=== PATIENT | male | born 1990 | race Caucasian/White ===

== ENCOUNTER 2018-03-27 19:16 | Inpatient (IN) | payer OTHER ==
[2018-03-27 20:01] LABS: ADD MAN DIFF? NO
[2018-03-27] MEDS: LORAZEPAM 2 MG INJ IV (20:07)
[2018-03-27] MEDS: ONDANSETRON 4 MG INJ IV (20:07)
[2018-03-27] MEDS: morphine 4 MG/ML VIAL IV (20:07)
[2018-03-27 20:12] LABS: BASOPHIL # 0.1 10^3/ul (0.0-0.1); BASOPHILS % 0.4 % (0.0-2.0); EOSINOPHILS # 0.2 10^3/ul (0.0-0.5); EOSINOPHILS % 1.3 % (0.0-7.0); HEMATOCRIT 43.9 % (42.0-52.0); HEMOGLOBIN 15.5 g/dl (14.0-18.0); LYMPHOCYTES # 2.3 10^3/ul (0.8-2.9); LYMPHOCYTES % 20.2 % (15.0-51.0); MEAN CORPUSCULAR HEMOGLOBIN 32.4 pg (29.0-33.0); MEAN CORPUSCULAR HGB CONC 35.3 g/dl (32.0-37.0); MEAN CORPUSCULAR VOLUME 91.6 fl (82.0-101.0); MEAN PLATELET VOLUME 10.9 fl (7.4-10.4); MONOCYTE # 0.7 10^3/ul (0.3-0.9); MONOCYTES % 6.5 % (0.0-11.0); NEUTROPHILS % 71.1 % (39.0-77.0); PLATELET COUNT 251 10^3/UL (140-415); RED BLOOD COUNT 4.79 10^6/ul (4.70-6.10); RED CELL DISTRIBUTION WIDTH 12.4 % (11.5-14.5)
[2018-03-27 20:12] LABS: WHITE BLOOD COUNT 11.2 10^3/ul (4.8-10.8)
[2018-03-27] MEDS: SOD CHLORIDE 0.9% 1,000 ML IV (20:14)
[2018-03-27 20:28] LABS: ALANINE AMINOTRANSFERASE 176 IU/L (13-69); ALBUMIN 4.6 g/dl (3.3-4.9); ALBUMIN/GLOBULIN RATIO 1.31; ALKALINE PHOSPHATASE 172 IU/L (42-121); ANION GAP 20 (8-16); ASPARTATE AMINO TRANSFERASE 100 IU/L (15-46); BILIRUBIN,INDIRECT 1.3 mg/dl (0-1.1); BILIRUBIN,TOTAL 3.9 mg/dl (0.2-1.3); BLOOD UREA NITROGEN 11 mg/dl (7-20); CALCIUM 9.8 mg/dl (8.4-10.2); CARBON DIOXIDE 26 mmol/L (21-31); CHLORIDE 104 mmol/L (97-110); CREATININE 0.91 mg/dl (0.61-1.24); GLUCOSE 135 mg/dl (70-220); POTASSIUM 4.1 mmol/L (3.5-5.1); SODIUM 146 mmol/L (135-144); TOTAL PROTEIN 8.1 g/dl (6.1-8.1)
[2018-03-27 20:31] LABS: ACETAMINOPHEN < 10.0 ug/ml (10.0-30.0); ETHANOL < 10.0 mg/dl; SALICYLATE < 1.0 mg/dl (5.0-30.0)
[2018-03-27 20:32] LABS: PARTIAL THROMBOPLASTIN TIME 26.4 Sec (25.0-35.0); PROTIME 12.2 Sec (11.9-14.9)
[2018-03-27] MEDS: SOD CHLORIDE 0.9% 100 ML (20:44)
[2018-03-27] MEDS: IOHEXOL 100 ML (20:44)
[2018-03-27 21:18] LABS: LIPASE 36746 U/L (23-300)
[2018-03-27 22:30] LABS: ADD UMIC NO; UR ASCORBIC ACID NEGATIVE (NEGATIVE); UR BILIRUBIN (Dip) NEGATIVE (NEGATIVE); UR BLOOD (Dip) NEGATIVE (NEGATIVE); UR CLARITY CLEAR (CLEAR); UR COLOR YELLOW (YELLOW); UR GLUCOSE (Dip) NEGATIVE (NEGATIVE); UR KETONES (Dip) TRACE mg/dL (NEGATIVE); UR LEUKOCYTE ESTERASE (Dip) NEGATIVE Leu/ul (NEGATIVE); UR NITRITE (Dip) NEGATIVE (NEGATIVE); UR SPECIFIC GRAVITY (Dip) 1.019 (1.003-1.030); UR TOTAL PROTEIN (Dip) NEGATIVE (NEGATIVE); UR UROBILINOGEN (Dip) 1+ mg/dL (NEGATIVE)
[2018-03-27] MEDS ORDERED: ACETAMINOPHEN 325 MG TAB PO (23:00)
[2018-03-27] MEDS ORDERED: ONDANSETRON 4 MG INJ IV (23:00)
[2018-03-27 23:10] LABS: AMPHETAMINE/METHAMPHETAMINE Negative (NEGATIVE); BENZODIAZEPINES Negative (NEGATIVE); CANNABINOIDS Positive (NEGATIVE); COCAINE Negative (NEGATIVE); OPIATES Positive (NEGATIVE)
[2018-03-27] MEDS: AMPICILLIN/SULB 3 GM/NS (PMX) 100 ML IVPB (23:12)
[2018-03-27 23:16] LABS: BARBITURATES Negative (NEGATIVE)
[2018-03-27] MEDS: HYDROmorphONE 0.5 MG/0.5 ML SYG IV (23:21)
[2018-03-28] MEDS ORDERED: ALBUTEROL/IPRATROPIUM (NEB) 3 ML AMP HHN
[2018-03-28] MEDS ORDERED: NACL 0.9% 3 ML SYG IV
[2018-03-28] MEDS: DEXTROSE 5%-0.45% NACL 1,000 ML IV ×3 (01:00→19:59)
[2018-03-28] MEDS: morphine 2 MG INJ IV (03:08)
[2018-03-28] MEDS: ONDANSETRON 4 MG INJ IV ×2 (04:04→13:08)
[2018-03-28] MEDS: KETOROLAC 30 MG INJ IV (04:16)
[2018-03-28] MEDS: HYDROmorphONE 1 MG/ML SYG IV ×6 (04:17→23:08)
[2018-03-28 06:14] LABS: ADD MAN DIFF? NO
[2018-03-28 06:20] LABS: ABNORMAL IP MESSAGE 1; BASOPHILS % 0.1 % (0.0-2.0); HEMATOCRIT 45.2 % (42.0-52.0); HEMOGLOBIN 16.1 g/dl (14.0-18.0); LYMPHOCYTES # 0.3 10^3/ul (0.8-2.9); LYMPHOCYTES % 1.9 % (15.0-51.0); MEAN CORPUSCULAR HEMOGLOBIN 32.7 pg (29.0-33.0); MEAN CORPUSCULAR HGB CONC 35.6 g/dl (32.0-37.0); MEAN CORPUSCULAR VOLUME 91.7 fl (82.0-101.0); MEAN PLATELET VOLUME 11.4 fl (7.4-10.4); MONOCYTE # 0.7 10^3/ul (0.3-0.9); MONOCYTES % 4.3 % (0.0-11.0); NEUTROPHIL # 14.4 10^3/ul (1.6-7.5); NEUTROPHILS % 93.1 % (39.0-77.0); PLATELET COUNT 256 10^3/UL (140-415); POSITIVE DIFF @See below; RED BLOOD COUNT 4.93 10^6/ul (4.70-6.10); RED CELL DISTRIBUTION WIDTH 12.4 % (11.5-14.5)
[2018-03-28 06:20] LABS: WHITE BLOOD COUNT 15.4 10^3/ul (4.8-10.8)
[2018-03-28 06:58] LABS: ALANINE AMINOTRANSFERASE 178 IU/L (13-69); ALBUMIN 4.1 g/dl (3.3-4.9); ALBUMIN/GLOBULIN RATIO 1.41; ALKALINE PHOSPHATASE 159 IU/L (42-121); ANION GAP 11 (8-16); ASPARTATE AMINO TRANSFERASE 106 IU/L (15-46); BILIRUBIN,INDIRECT 1.5 mg/dl (0-1.1); BILIRUBIN,TOTAL 4.6 mg/dl (0.2-1.3); BLOOD UREA NITROGEN 10 mg/dl (7-20); CALCIUM 9.1 mg/dl (8.4-10.2); CARBON DIOXIDE 27 mmol/L (21-31); CHLORIDE 105 mmol/L (97-110); GLUCOSE 174 mg/dl (70-220); PHOSPHORUS 4.7 mg/dl (2.5-4.9); POTASSIUM 3.8 mmol/L (3.5-5.1); SODIUM 139 mmol/L (135-144)
[2018-03-28 08:05] LABS: MAGNESIUM 1.7 mg/dl (1.7-2.5)
[2018-03-28] MEDS: FAMOTIDINE 20 MG INJ IV (08:27)
[2018-03-28] MEDS: MEROPENEM 1 GM/50ML(PMX) 50 ML IVPB ×3 (10:03→22:29)
[2018-03-28] MEDS ORDERED: morphine LIQ (10 MG/5 ML) CUP PO (15:00)
[2018-03-29] MEDS ORDERED: SENNA TAB PO
[2018-03-29] MEDS: SENNA TAB PO ×3 (01:58→20:07)
[2018-03-29] MEDS: MAGNESIUM HYDROXIDE 30ML CUP PO (02:01)
[2018-03-29] MEDS: HYDROmorphONE 1 MG/ML SYG IV ×8 (02:03→23:05)
[2018-03-29] MEDS: DEXTROSE 5%-0.45% NACL 1,000 ML IV ×3 (04:05→22:01)
[2018-03-29] MEDS: MEROPENEM 1 GM/50ML(PMX) 50 ML IVPB ×3 (05:22→22:01)
[2018-03-29 06:13] LABS: ADD MAN DIFF? NO
[2018-03-29 06:17] LABS: ABNORMAL IP MESSAGE 1; BASOPHILS % 0.1 % (0.0-2.0); HEMATOCRIT 45.3 % (42.0-52.0); LYMPHOCYTES # 0.7 10^3/ul (0.8-2.9); MEAN CORPUSCULAR HEMOGLOBIN 32.3 pg (29.0-33.0); MEAN CORPUSCULAR HGB CONC 35.3 g/dl (32.0-37.0); MEAN CORPUSCULAR VOLUME 91.5 fl (82.0-101.0); MEAN PLATELET VOLUME 11.3 fl (7.4-10.4); MONOCYTE # 1.2 10^3/ul (0.3-0.9); MONOCYTES % 5.1 % (0.0-11.0); NEUTROPHIL # 22.1 10^3/ul (1.6-7.5); PLATELET COUNT 234 10^3/UL (140-415); POSITIVE DIFF @See below; RED BLOOD COUNT 4.95 10^6/ul (4.70-6.10); RED CELL DISTRIBUTION WIDTH 12.8 % (11.5-14.5)
[2018-03-29 06:17] LABS: WHITE BLOOD COUNT 24.3 10^3/ul (4.8-10.8)
[2018-03-29 07:04] LABS: ALANINE AMINOTRANSFERASE 139 IU/L (13-69); ALBUMIN 3.8 g/dl (3.3-4.9); ALBUMIN/GLOBULIN RATIO 1.26; ALKALINE PHOSPHATASE 161 IU/L (42-121); ANION GAP 10 (8-16); ASPARTATE AMINO TRANSFERASE 48 IU/L (15-46); BILIRUBIN,INDIRECT 1.7 mg/dl (0-1.1); BILIRUBIN,TOTAL 1.7 mg/dl (0.2-1.3); BLOOD UREA NITROGEN 14 mg/dl (7-20); CALCIUM 9.2 mg/dl (8.4-10.2); CARBON DIOXIDE 29 mmol/L (21-31); CHLORIDE 103 mmol/L (97-110); CREATININE 0.59 mg/dl (0.61-1.24); GLUCOSE 120 mg/dl (70-220); POTASSIUM 3.4 mmol/L (3.5-5.1); SODIUM 139 mmol/L (135-144); TOTAL PROTEIN 6.8 g/dl (6.1-8.1)
[2018-03-29 07:08] LABS: HEPATITIS B SURFACE ANTIGEN NEGATIVE (NEGATIVE)
[2018-03-29 07:25] LABS: LIPASE 2607 U/L (23-300)
[2018-03-29 07:25] LABS: HEPATITIS B SURFACE ANTIBODY NEGATIVE (NEGATIVE)
[2018-03-29 07:26] LABS: HEPATITIS B CORE ANTIBODY NEGATIVE (NEGATIVE); HEPATITIS C VIRAL ANTIBODY NEGATIVE (NEGATIVE)
[2018-03-29] MEDS: FAMOTIDINE 20 MG INJ IV (08:34)
[2018-03-29] MEDS ORDERED: POTASSIUM CHLORIDE 50 ML IVPB (09:00)
[2018-03-29] MEDS: POTASSIUM CHLORIDE 100 ML IVPB (10:35)
[2018-03-29] MEDS: BISACODYL 10 MG SUPP PR (14:32)
[2018-03-29] MEDS ORDERED: VITAMIN A & D 5 GM OINT PACKET TOP (14:37)
[2018-03-29] MEDS: KETOROLAC 30 MG INJ IV (21:59)
[2018-03-30] MEDS: ACETAMINOPHEN 1000MG/100ML IV 100 ML IVPB (01:18)
[2018-03-30] MEDS: HYDROmorphONE 1 MG/ML SYG IV ×10 (02:10→23:26)
[2018-03-30] MEDS: KETOROLAC 30 MG INJ IV (04:19)
[2018-03-30 05:35] LABS: ADD MAN DIFF? NO
[2018-03-30] MEDS: MEROPENEM 1 GM/50ML(PMX) 50 ML IVPB ×3 (05:40→21:26)
[2018-03-30 05:46] LABS: WHITE BLOOD COUNT 21.4 10^3/ul (4.8-10.8)
[2018-03-30 05:46] LABS: BASOPHILS % 0.1 % (0.0-2.0); HEMATOCRIT 40.9 % (42.0-52.0); HEMOGLOBIN 14.5 g/dl (14.0-18.0); LYMPHOCYTES % 4.7 % (15.0-51.0); MEAN CORPUSCULAR HEMOGLOBIN 32.3 pg (29.0-33.0); MEAN CORPUSCULAR HGB CONC 35.5 g/dl (32.0-37.0); MEAN CORPUSCULAR VOLUME 91.1 fl (82.0-101.0); MEAN PLATELET VOLUME 11.1 fl (7.4-10.4); MONOCYTE # 1.4 10^3/ul (0.3-0.9); MONOCYTES % 6.3 % (0.0-11.0); NEUTROPHIL # 18.8 10^3/ul (1.6-7.5); NEUTROPHILS % 87.9 % (39.0-77.0); PLATELET COUNT 196 10^3/UL (140-415); RED BLOOD COUNT 4.49 10^6/ul (4.70-6.10); RED CELL DISTRIBUTION WIDTH 12.1 % (11.5-14.5)
[2018-03-30 06:01] LABS: AMYLASE 253 U/L (11-123)
[2018-03-30 06:06] LABS: ALANINE AMINOTRANSFERASE 86 IU/L (13-69); ALBUMIN 3.4 g/dl (3.3-4.9); ALBUMIN/GLOBULIN RATIO 1.17; ALKALINE PHOSPHATASE 131 IU/L (42-121); ANION GAP 8 (8-16); ASPARTATE AMINO TRANSFERASE 22 IU/L (15-46); BILIRUBIN,INDIRECT 1.9 mg/dl (0-1.1); BILIRUBIN,TOTAL 1.9 mg/dl (0.2-1.3); BLOOD UREA NITROGEN 10 mg/dl (7-20); CALCIUM 8.9 mg/dl (8.4-10.2); CARBON DIOXIDE 30 mmol/L (21-31); CHLORIDE 100 mmol/L (97-110); CREATININE 0.58 mg/dl (0.61-1.24); GLUCOSE 117 mg/dl (70-220); LIPASE 518 U/L (23-300); POTASSIUM 3.7 mmol/L (3.5-5.1); SODIUM 134 mmol/L (135-144); TOTAL PROTEIN 6.3 g/dl (6.1-8.1)
[2018-03-30] MEDS: SENNA TAB PO ×2 (07:36→21:00)
[2018-03-30] MEDS: FAMOTIDINE 20 MG INJ IV (08:33)
[2018-03-30] MEDS: DEXTROSE 5%-0.45% NACL 1,000 ML IV ×3 (08:34→23:26)
[2018-03-30] MEDS: ONDANSETRON 4 MG INJ IV (10:23)
[2018-03-31] MEDS: HYDROmorphONE 1 MG/ML SYG IV ×5 (01:31→13:00)
[2018-03-31] MEDS: MEROPENEM 1 GM/50ML(PMX) 50 ML IVPB ×3 (05:37→20:12)
[2018-03-31 05:53] LABS: ADD MAN DIFF? NO
[2018-03-31 05:55] LABS: BASOPHILS % 0.1 % (0.0-2.0); EOSINOPHILS % 0.1 % (0.0-7.0); HEMATOCRIT 40.5 % (42.0-52.0); HEMOGLOBIN 14.8 g/dl (14.0-18.0); LYMPHOCYTES # 1.4 10^3/ul (0.8-2.9); LYMPHOCYTES % 6.6 % (15.0-51.0); MEAN CORPUSCULAR HEMOGLOBIN 32.6 pg (29.0-33.0); MEAN CORPUSCULAR HGB CONC 36.5 g/dl (32.0-37.0); MEAN CORPUSCULAR VOLUME 89.2 fl (82.0-101.0); MEAN PLATELET VOLUME 11.2 fl (7.4-10.4); MONOCYTE # 1.4 10^3/ul (0.3-0.9); MONOCYTES % 6.2 % (0.0-11.0); NEUTROPHIL # 18.6 10^3/ul (1.6-7.5); NEUTROPHILS % 86.2 % (39.0-77.0); PLATELET COUNT 239 10^3/UL (140-415); RED BLOOD COUNT 4.54 10^6/ul (4.70-6.10); RED CELL DISTRIBUTION WIDTH 11.8 % (11.5-14.5)
[2018-03-31 05:55] LABS: WHITE BLOOD COUNT 21.6 10^3/ul (4.8-10.8)
[2018-03-31 06:02] LABS: PHOSPHORUS 2.3 mg/dl (2.5-4.9)
[2018-03-31 06:03] LABS: ALANINE AMINOTRANSFERASE 65 IU/L (13-69); ALBUMIN 3.8 g/dl (3.3-4.9); ALBUMIN/GLOBULIN RATIO 1.15; ALKALINE PHOSPHATASE 125 IU/L (42-121); AMYLASE 95 U/L (11-123); ANION GAP 14 (8-16); ASPARTATE AMINO TRANSFERASE 21 IU/L (15-46); BILIRUBIN,INDIRECT 1.4 mg/dl (0-1.1); BILIRUBIN,TOTAL 1.4 mg/dl (0.2-1.3); BLOOD UREA NITROGEN 7 mg/dl (7-20); CARBON DIOXIDE 29 mmol/L (21-31); CHLORIDE 96 mmol/L (97-110); CREATININE 0.58 mg/dl (0.61-1.24); GLUCOSE 114 mg/dl (70-220); LIPASE 137 U/L (23-300); POTASSIUM 3.5 mmol/L (3.5-5.1); SODIUM 135 mmol/L (135-144); TOTAL PROTEIN 7.1 g/dl (6.1-8.1)
[2018-03-31 06:08] LABS: CHOL/HDL RATIO 4.4 RATIO; HDL CHOLESTEROL 30 mg/dl (30-63); LDL CHOLESTEROL,CALCULATED 84 mg/dl; TRIGLYCERIDES 95 mg/dl (0-149)
[2018-03-31 06:08] LABS: CHOLESTEROL 133 mg/dl (100-200)
[2018-03-31 07:43] LABS: HEMOGLOBIN A1C 4.7 % (0-5.9)
[2018-03-31] MEDS: FAMOTIDINE 20 MG INJ IV (07:57)
[2018-03-31] MEDS: SENNA TAB PO ×2 (07:57→20:55)
[2018-03-31] MEDS: DEXTROSE 5%-0.45% NACL 1,000 ML IV ×2 (13:04→23:21)
[2018-03-31] MEDS: ACETAMINOPHEN 1000MG/100ML IV 100 ML IVPB ×2 (14:46→20:12)
[2018-03-31] MEDS: METHYLNALTREXONE 12 MG/0.6 ML VIAL SC (15:59)
[2018-03-31] MEDS: HYDROmorphONE 2 MG/ML SYG IV ×2 (16:54→20:55)
[2018-04-01] MEDS: HYDROmorphONE 2 MG/ML SYG IV ×3 (00:53→09:12)
[2018-04-01] MEDS: ACETAMINOPHEN 1000MG/100ML IV 100 ML IVPB ×4 (02:57→19:14)
[2018-04-01] MEDS: KETOROLAC 30 MG INJ IV (03:56)
[2018-04-01] MEDS: ONDANSETRON 4 MG INJ IV (03:56)
[2018-04-01] MEDS: MEROPENEM 1 GM/50ML(PMX) 50 ML IVPB ×2 (05:15→14:22)
[2018-04-01 05:39] LABS: ADD MAN DIFF? NO
[2018-04-01 05:50] LABS: BASOPHILS % 0.2 % (0.0-2.0); EOSINOPHILS # 0.1 10^3/ul (0.0-0.5); EOSINOPHILS % 0.3 % (0.0-7.0); HEMATOCRIT 37.3 % (42.0-52.0); HEMOGLOBIN 13.8 g/dl (14.0-18.0); LYMPHOCYTES % 5.6 % (15.0-51.0); MEAN CORPUSCULAR HEMOGLOBIN 32.6 pg (29.0-33.0); MEAN CORPUSCULAR VOLUME 88.2 fl (82.0-101.0); MEAN PLATELET VOLUME 10.8 fl (7.4-10.4); MONOCYTE # 1.2 10^3/ul (0.3-0.9); NEUTROPHIL # 14.8 10^3/ul (1.6-7.5); PLATELET COUNT 229 10^3/UL (140-415); RED BLOOD COUNT 4.23 10^6/ul (4.70-6.10); RED CELL DISTRIBUTION WIDTH 11.7 % (11.5-14.5)
[2018-04-01 05:50] LABS: WHITE BLOOD COUNT 17.3 10^3/ul (4.8-10.8)
[2018-04-01 06:08] LABS: MAGNESIUM 1.9 mg/dl (1.7-2.5)
[2018-04-01 06:08] LABS: PHOSPHORUS 2.7 mg/dl (2.5-4.9)
[2018-04-01 06:14] LABS: ALANINE AMINOTRANSFERASE 67 IU/L (13-69); ALBUMIN 3.3 g/dl (3.3-4.9); ALKALINE PHOSPHATASE 308 IU/L (42-121); AMYLASE 64 U/L (11-123); ANION GAP 9 (8-16); ASPARTATE AMINO TRANSFERASE 62 IU/L (15-46); BILIRUBIN,INDIRECT 1.1 mg/dl (0-1.1); BILIRUBIN,TOTAL 1.1 mg/dl (0.2-1.3); BLOOD UREA NITROGEN 7 mg/dl (7-20); CALCIUM 8.7 mg/dl (8.4-10.2); CARBON DIOXIDE 28 mmol/L (21-31); CHLORIDE 100 mmol/L (97-110); GLUCOSE 118 mg/dl (70-220); LIPASE 71 U/L (23-300); POTASSIUM 3.4 mmol/L (3.5-5.1); SODIUM 134 mmol/L (135-144); TOTAL PROTEIN 6.3 g/dl (6.1-8.1)
[2018-04-01] MEDS: FAMOTIDINE 20 MG INJ IV (09:12)
[2018-04-01] MEDS: SENNA TAB PO ×2 (09:12→21:49)
[2018-04-01] MEDS: HYDROmorphONE 1 MG/ML SYG IV ×3 (13:15→21:52)
[2018-04-01] MEDS: DEXTROSE 5%-0.45% NACL 1,000 ML IV ×2 (13:59→17:40)
[2018-04-01] MEDS: POTASSIUM CHLORIDE (SR) 20 MEQ TAB PO (21:49)
[2018-04-02] MEDS: HYDROmorphONE 1 MG/ML SYG IV ×8 (00:28→22:16)
[2018-04-02] MEDS: ACETAMINOPHEN 1000MG/100ML IV 100 ML IVPB ×4 (01:22→18:08)
[2018-04-02] MEDS: DEXTROSE 5%-0.45% NACL 1,000 ML IV ×2 (04:27→20:52)
[2018-04-02 07:06] LABS: ADD MAN DIFF? NO
[2018-04-02 07:10] LABS: BASOPHIL # 0.1 10^3/ul (0.0-0.1); BASOPHILS % 0.3 % (0.0-2.0); EOSINOPHILS # 0.1 10^3/ul (0.0-0.5); EOSINOPHILS % 0.7 % (0.0-7.0); HEMATOCRIT 37.8 % (42.0-52.0); HEMOGLOBIN 13.8 g/dl (14.0-18.0); LYMPHOCYTES # 1.2 10^3/ul (0.8-2.9); MEAN CORPUSCULAR HEMOGLOBIN 32.4 pg (29.0-33.0); MEAN CORPUSCULAR HGB CONC 36.5 g/dl (32.0-37.0); MEAN CORPUSCULAR VOLUME 88.7 fl (82.0-101.0); MEAN PLATELET VOLUME 10.8 fl (7.4-10.4); MONOCYTE # 1.2 10^3/ul (0.3-0.9); MONOCYTES % 7.1 % (0.0-11.0); NEUTROPHIL # 14.6 10^3/ul (1.6-7.5); PLATELET COUNT 264 10^3/UL (140-415); RED BLOOD COUNT 4.26 10^6/ul (4.70-6.10); RED CELL DISTRIBUTION WIDTH 11.9 % (11.5-14.5)
[2018-04-02 07:10] LABS: WHITE BLOOD COUNT 17.4 10^3/ul (4.8-10.8)
[2018-04-02 07:55] LABS: AMYLASE 58 U/L (11-123); PHOSPHORUS 3.3 mg/dl (2.5-4.9)
[2018-04-02 07:55] LABS: ALANINE AMINOTRANSFERASE 46 IU/L (13-69); ALBUMIN/GLOBULIN RATIO 1.07; ALKALINE PHOSPHATASE 209 IU/L (42-121); ANION GAP 11 (8-16); ASPARTATE AMINO TRANSFERASE 18 IU/L (15-46); BILIRUBIN,INDIRECT 1.2 mg/dl (0-1.1); BILIRUBIN,TOTAL 1.2 mg/dl (0.2-1.3); BLOOD UREA NITROGEN 5 mg/dl (7-20); CALCIUM 8.8 mg/dl (8.4-10.2); CARBON DIOXIDE 28 mmol/L (21-31); CHLORIDE 99 mmol/L (97-110); CREATININE 0.53 mg/dl (0.61-1.24); GLUCOSE 113 mg/dl (70-220); LIPASE 82 U/L (23-300); MAGNESIUM 1.9 mg/dl (1.7-2.5); POTASSIUM 3.8 mmol/L (3.5-5.1); SODIUM 134 mmol/L (135-144); TOTAL PROTEIN 5.8 g/dl (6.1-8.1)
[2018-04-02] MEDS: SENNA TAB PO ×2 (08:52→20:46)
[2018-04-02] MEDS: FAMOTIDINE 20 MG INJ IV (08:53)
[2018-04-02] MEDS: METHYLNALTREXONE 12 MG/0.6 ML VIAL SC (15:43)
[2018-04-03] MEDS: ACETAMINOPHEN 1000MG/100ML IV 100 ML IVPB ×4 (01:18→19:50)
[2018-04-03] MEDS: HYDROmorphONE 1 MG/ML SYG IV ×5 (03:01→20:04)
[2018-04-03 05:54] LABS: ADD MAN DIFF? NO
[2018-04-03 06:01] LABS: BASOPHIL # 0.1 10^3/ul (0.0-0.1); BASOPHILS % 0.3 % (0.0-2.0); EOSINOPHILS # 0.2 10^3/ul (0.0-0.5); EOSINOPHILS % 1.6 % (0.0-7.0); HEMATOCRIT 36.5 % (42.0-52.0); HEMOGLOBIN 13.2 g/dl (14.0-18.0); LYMPHOCYTES # 1.4 10^3/ul (0.8-2.9); LYMPHOCYTES % 9.6 % (15.0-51.0); MEAN CORPUSCULAR HEMOGLOBIN 32.7 pg (29.0-33.0); MEAN CORPUSCULAR HGB CONC 36.2 g/dl (32.0-37.0); MEAN CORPUSCULAR VOLUME 90.3 fl (82.0-101.0); MEAN PLATELET VOLUME 10.2 fl (7.4-10.4); NEUTROPHIL # 11.5 10^3/ul (1.6-7.5); NEUTROPHILS % 80.2 % (39.0-77.0); PLATELET COUNT 264 10^3/UL (140-415); RED BLOOD COUNT 4.04 10^6/ul (4.70-6.10); RED CELL DISTRIBUTION WIDTH 11.8 % (11.5-14.5)
[2018-04-03 06:01] LABS: WHITE BLOOD COUNT 14.4 10^3/ul (4.8-10.8)
[2018-04-03 06:27] LABS: ALANINE AMINOTRANSFERASE 39 IU/L (13-69); ALBUMIN 3.1 g/dl (3.3-4.9); ALKALINE PHOSPHATASE 160 IU/L (42-121); AMYLASE 61 U/L (11-123); ANION GAP 12 (8-16); ASPARTATE AMINO TRANSFERASE 16 IU/L (15-46); BLOOD UREA NITROGEN 5 mg/dl (7-20); CALCIUM 8.8 mg/dl (8.4-10.2); CARBON DIOXIDE 33 mmol/L (21-31); CHLORIDE 99 mmol/L (97-110); CREATININE 0.67 mg/dl (0.61-1.24); GLUCOSE 111 mg/dl (70-220); LIPASE 116 U/L (23-300); POTASSIUM 3.7 mmol/L (3.5-5.1); SODIUM 140 mmol/L (135-144); TOTAL PROTEIN 6.2 g/dl (6.1-8.1)
[2018-04-03 06:40] LABS: PHOSPHORUS 4.9 mg/dl (2.5-4.9)
[2018-04-03] MEDS: DEXTROSE 5%-0.45% NACL 1,000 ML IV ×3 (07:05→18:05)
[2018-04-03] MEDS: SENNA TAB PO ×2 (08:49→20:05)
[2018-04-03] MEDS: FAMOTIDINE 20 MG INJ IV (08:49)
[2018-04-04] MEDS: HYDROmorphONE 1 MG/ML SYG IV ×3 (00:17→09:13)
[2018-04-04] MEDS: ACETAMINOPHEN 1000MG/100ML IV 100 ML IVPB ×4 (01:55→21:40)
[2018-04-04 05:17] LABS: ADD MAN DIFF? NO
[2018-04-04 05:24] LABS: BASOPHILS % 0.4 % (0.0-2.0); EOSINOPHILS # 0.3 10^3/ul (0.0-0.5); EOSINOPHILS % 3.3 % (0.0-7.0); HEMATOCRIT 36.7 % (42.0-52.0); HEMOGLOBIN 12.9 g/dl (14.0-18.0); LYMPHOCYTES # 1.9 10^3/ul (0.8-2.9); LYMPHOCYTES % 18.6 % (15.0-51.0); MEAN CORPUSCULAR HEMOGLOBIN 31.7 pg (29.0-33.0); MEAN CORPUSCULAR HGB CONC 35.1 g/dl (32.0-37.0); MEAN CORPUSCULAR VOLUME 90.2 fl (82.0-101.0); MEAN PLATELET VOLUME 10.2 fl (7.4-10.4); MONOCYTE # 0.8 10^3/ul (0.3-0.9); MONOCYTES % 8.4 % (0.0-11.0); NEUTROPHIL # 6.7 10^3/ul (1.6-7.5); NEUTROPHILS % 67.6 % (39.0-77.0); PLATELET COUNT 296 10^3/UL (140-415); RED BLOOD COUNT 4.07 10^6/ul (4.70-6.10); RED CELL DISTRIBUTION WIDTH 11.7 % (11.5-14.5)
[2018-04-04 05:52] LABS: ALANINE AMINOTRANSFERASE 56 IU/L (13-69); ALBUMIN 3.1 g/dl (3.3-4.9); ALKALINE PHOSPHATASE 294 IU/L (42-121); AMYLASE 55 U/L (11-123); ANION GAP 13 (8-16); ASPARTATE AMINO TRANSFERASE 50 IU/L (15-46); BILIRUBIN,INDIRECT 0.8 mg/dl (0-1.1); BILIRUBIN,TOTAL 0.8 mg/dl (0.2-1.3); BLOOD UREA NITROGEN 5 mg/dl (7-20); CARBON DIOXIDE 30 mmol/L (21-31); CHLORIDE 100 mmol/L (97-110); GLUCOSE 105 mg/dl (70-220); LIPASE 219 U/L (23-300); POTASSIUM 3.8 mmol/L (3.5-5.1); SODIUM 139 mmol/L (135-144); TOTAL PROTEIN 5.9 g/dl (6.1-8.1)
[2018-04-04 05:55] LABS: PHOSPHORUS 4.9 mg/dl (2.5-4.9)
[2018-04-04] MEDS: DEXTROSE 5%-0.45% NACL 1,000 ML IV ×2 (07:04→17:54)
[2018-04-04] MEDS: SENNA TAB PO ×2 (09:11→21:41)
[2018-04-04] MEDS: FAMOTIDINE 20 MG INJ IV (09:12)
[2018-04-04] MEDS ORDERED: HYDROmorphONE 0.5 MG/0.5 ML SYG IV (10:30)
[2018-04-04] MEDS ORDERED: HYDROmorphONE 1 MG/ML SYG IV (12:30)
[2018-04-04] MEDS: SUCRALFATE (100 MG/ML) 10ML CUP PO (21:41)
[2018-04-05] MEDS: AL HYDROX/MG HYDROX/SIMETH 30 ML CUP PO (03:06)
[2018-04-05] MEDS: ACETAMINOPHEN 1000MG/100ML IV 100 ML IVPB (04:11)
[2018-04-05] MEDS: DEXTROSE 5%-0.45% NACL 1,000 ML IV ×2 (04:11→14:25)
[2018-04-05 05:38] LABS: ADD MAN DIFF? NO
[2018-04-05 05:50] LABS: BASOPHIL # 0.1 10^3/ul (0.0-0.1); BASOPHILS % 0.5 % (0.0-2.0); EOSINOPHILS # 0.3 10^3/ul (0.0-0.5); EOSINOPHILS % 3.3 % (0.0-7.0); HEMATOCRIT 35.1 % (42.0-52.0); HEMOGLOBIN 12.7 g/dl (14.0-18.0); LYMPHOCYTES # 2.4 10^3/ul (0.8-2.9); LYMPHOCYTES % 23.7 % (15.0-51.0); MEAN CORPUSCULAR HEMOGLOBIN 32.4 pg (29.0-33.0); MEAN CORPUSCULAR HGB CONC 36.2 g/dl (32.0-37.0); MEAN CORPUSCULAR VOLUME 89.5 fl (82.0-101.0); MEAN PLATELET VOLUME 10.1 fl (7.4-10.4); MONOCYTE # 0.8 10^3/ul (0.3-0.9); MONOCYTES % 8.2 % (0.0-11.0); NEUTROPHIL # 6.3 10^3/ul (1.6-7.5); NEUTROPHILS % 62.4 % (39.0-77.0); PLATELET COUNT 327 10^3/UL (140-415); RED BLOOD COUNT 3.92 10^6/ul (4.70-6.10); RED CELL DISTRIBUTION WIDTH 11.3 % (11.5-14.5)
[2018-04-05 05:50] LABS: WHITE BLOOD COUNT 10.2 10^3/ul (4.8-10.8)
[2018-04-05 06:08] LABS: ALANINE AMINOTRANSFERASE 50 IU/L (13-69); ALBUMIN 3.1 g/dl (3.3-4.9); ALBUMIN/GLOBULIN RATIO 1.03; ALKALINE PHOSPHATASE 224 IU/L (42-121); AMYLASE 76 U/L (11-123); ANION GAP 13 (8-16); ASPARTATE AMINO TRANSFERASE 27 IU/L (15-46); BILIRUBIN,INDIRECT 0.5 mg/dl (0-1.1); BILIRUBIN,TOTAL 0.5 mg/dl (0.2-1.3); BLOOD UREA NITROGEN 6 mg/dl (7-20); CARBON DIOXIDE 27 mmol/L (21-31); CHLORIDE 105 mmol/L (97-110); CREATININE 0.63 mg/dl (0.61-1.24); GLUCOSE 104 mg/dl (70-220); LIPASE 233 U/L (23-300); POTASSIUM 3.5 mmol/L (3.5-5.1); SODIUM 141 mmol/L (135-144); TOTAL PROTEIN 6.1 g/dl (6.1-8.1)
[2018-04-05 06:12] LABS: PHOSPHORUS 4.7 mg/dl (2.5-4.9)
[2018-04-05] MEDS: PANTOPRAZOLE 40 MG INJ IV (06:28)
[2018-04-05] MEDS: SUCRALFATE (100 MG/ML) 10ML CUP PO ×4 (08:18→21:11)
[2018-04-05] MEDS: SENNA TAB PO ×2 (08:18→21:11)
[2018-04-06] MEDS: DEXTROSE 5%-0.45% NACL 1,000 ML IV ×2 (01:12→12:38)
[2018-04-06] MEDS: PANTOPRAZOLE 40 MG INJ IV (05:30)
[2018-04-06 06:10] LABS: ADD MAN DIFF? NO
[2018-04-06 06:21] LABS: BASOPHIL # 0.1 10^3/ul (0.0-0.1); BASOPHILS % 0.5 % (0.0-2.0); EOSINOPHILS # 0.4 10^3/ul (0.0-0.5); EOSINOPHILS % 3.4 % (0.0-7.0); HEMATOCRIT 37.2 % (42.0-52.0); HEMOGLOBIN 13.3 g/dl (14.0-18.0); LYMPHOCYTES # 3.2 10^3/ul (0.8-2.9); LYMPHOCYTES % 24.7 % (15.0-51.0); MEAN CORPUSCULAR HEMOGLOBIN 32.1 pg (29.0-33.0); MEAN CORPUSCULAR HGB CONC 35.8 g/dl (32.0-37.0); MEAN CORPUSCULAR VOLUME 89.9 fl (82.0-101.0); MONOCYTES % 7.4 % (0.0-11.0); NEUTROPHILS % 62.1 % (39.0-77.0); PLATELET COUNT 378 10^3/UL (140-415); RED BLOOD COUNT 4.14 10^6/ul (4.70-6.10); RED CELL DISTRIBUTION WIDTH 11.1 % (11.5-14.5)
[2018-04-06 06:21] LABS: WHITE BLOOD COUNT 12.9 10^3/ul (4.8-10.8)
[2018-04-06 06:37] LABS: ALANINE AMINOTRANSFERASE 43 IU/L (13-69); ALBUMIN 3.4 g/dl (3.3-4.9); ALBUMIN/GLOBULIN RATIO 1.13; ALKALINE PHOSPHATASE 186 IU/L (42-121); AMYLASE 85 U/L (11-123); ANION GAP 13 (8-16); ASPARTATE AMINO TRANSFERASE 27 IU/L (15-46); BILIRUBIN,INDIRECT 0.4 mg/dl (0-1.1); BILIRUBIN,TOTAL 0.4 mg/dl (0.2-1.3); BLOOD UREA NITROGEN 5 mg/dl (7-20); CALCIUM 9.2 mg/dl (8.4-10.2); CARBON DIOXIDE 28 mmol/L (21-31); CHLORIDE 106 mmol/L (97-110); CREATININE 0.63 mg/dl (0.61-1.24); GLUCOSE 99 mg/dl (70-220); LIPASE 310 U/L (23-300); POTASSIUM 3.6 mmol/L (3.5-5.1); SODIUM 143 mmol/L (135-144); TOTAL PROTEIN 6.4 g/dl (6.1-8.1)
[2018-04-06 06:49] LABS: PHOSPHORUS 4.6 mg/dl (2.5-4.9)
[2018-04-06] MEDS: SENNA TAB PO (08:11)
[2018-04-06] MEDS: SUCRALFATE (100 MG/ML) 10ML CUP PO ×3 (08:11→16:57)
== END 2018-04-06 17:59 | disposition home or self-care (01) | DRG 439 ==
LOC: PP2 22:55 → E/R 19:16
DX: K85.10 Biliary acute pancreatitis without necrosis or infection (principal); F11.20 Opioid dependence, uncomplicated; K80.20 Calculus of gallbladder without cholecystitis without obstruction; F12.90 Cannabis use, unspecified, uncomplicated; F15.90 Other stimulant use, unspecified, uncomplicated; D72.829 Elevated white blood cell count, unspecified; E66.9 Obesity, unspecified; Z68.35 Body mass index [BMI] 35.0-35.9, adult; Z76.5 Malingerer [conscious simulation]
CPT/HCPCS: 36415; 70450; 71045; 71275; 74181; 74182; 75635; 76705; 78226; 80053; 80061; 80307; 81003; 82150; 82962; 83036; 83690; 83735; 84100; 85025; 85610; 85730; 86704; 86706; 86709; 86803; 87340; 93005; 96374; 96375; 99291-25